=== PATIENT | male | born 1995 | race Hispanic/Latino ===

== ENCOUNTER → 2018-09-22 | Outpatient (REF) | payer OTHER ==
[2018-09-22 12:58] LABS: BLOOD UREA NITROGEN 13 MG/DL (7-18); CALCIUM LEVEL 8.8 MG/DL (8.5-10.1); CARBON DIOXIDE LEVEL 28 MEQ/L (21-32); CHLORIDE LEVEL 107 MEQ/L (98-107); CREATININE FOR GFR 0.78 MG/DL (0.70-1.30); GLOMERULAR FILTRATION RATE > 60.0 (>60); GLUCOSE, FASTING 100 MG/DL (70-100); POTASSIUM SERUM 3.8 MEQ/L (3.5-5.1); SODIUM LEVEL 142 MEQ/L (136-145)
[2018-09-22 13:03] LABS: CORTISOL AM 0.7 UG/DL (4.3-22.4)
[2018-09-22 13:39] LABS: OSMOLALITY SERUM 300 MOSM/KG (275-295)
== END ==
LOC: M LABDRAW1 11:48
PROVIDERS: ATTEND Internal Medicine Endocrinology, Diabetes & Metabolism
DX: D49.7 Neoplasm of unspecified behavior of endocrine glands and other parts of nervous system (principal)

== ENCOUNTER 2019-01-03 09:28 | Emergency (ER) | payer OTHER ==
[~2019-01-03] VITALS: Ht 162.6 cm; Wt 97.7 kg
[2019-01-03] MEDS ORDERED: SYNT125T PO (10:07)
[2019-01-03] MEDS ORDERED: DESM0.1T2 PO (10:07)
[2019-01-03] MEDS ORDERED: AMOX875T2 PO (10:07)
[2019-01-03] MEDS ORDERED: NS 1,000 ML IV ONE (10:15)
[2019-01-03] MEDS ORDERED: ONDANSETRON 4MG/2ML VIAL (J2405) IV ONE (10:15)
[2019-01-03] MEDS ORDERED: PHENYLEPHRINE 0.5% NASAL SPRAY 15 ML ONE (10:15)
[2019-01-03 10:47] LABS: HEMATOCRIT 33.5 % (42.0-52.0); MEAN CORPUSCULAR HEMOGLOBIN 30.9 pg (27.0-33.0); MEAN CORPUSCULAR HGB CONC 32.8 g/dl (32.0-36.5); MEAN CORPUSCULAR VOLUME 94.1 fl (80.0-96.0); PLATELET COUNT, AUTOMATED 353 10^3/uL (150-450); RED BLOOD COUNT 3.56 10^6/uL (4.30-6.10); WHITE BLOOD COUNT 12.1 10^3/uL (4.0-10.0)
[2019-01-03 11:01] LABS: INR 0.98; PROTHROMBIN TIME 13.1 SECONDS (12.1-14.4)
[2019-01-03 13:47] LABS: HEMATOCRIT 29.8 % (42.0-52.0); HEMOGLOBIN 9.8 g/dl (13.5-17.5); MEAN CORPUSCULAR HEMOGLOBIN 30.2 pg (27.0-33.0); MEAN CORPUSCULAR HGB CONC 32.9 g/dl (32.0-36.5); MEAN CORPUSCULAR VOLUME 91.7 fl (80.0-96.0); PLATELET COUNT, AUTOMATED 349 10^3/uL (150-450); RED BLOOD COUNT 3.25 10^6/uL (4.30-6.10); WHITE BLOOD COUNT 14.5 10^3/uL (4.0-10.0)
[2019-01-03 14:17] LABS: BLOOD UREA NITROGEN 26 MG/DL (7-18); CALCIUM LEVEL 8.4 MG/DL (8.5-10.1); CARBON DIOXIDE LEVEL 27 MEQ/L (21-32); CHLORIDE LEVEL 110 MEQ/L (98-107); CREATININE FOR GFR 0.85 MG/DL (0.70-1.30); GLOMERULAR FILTRATION RATE > 60.0 (>60); GLUCOSE, FASTING 95 MG/DL (70-100); POTASSIUM SERUM 4.5 MEQ/L (3.5-5.1); SODIUM LEVEL 143 MEQ/L (136-145)
[2019-01-03 16:36] VITALS: BP 99/56
== END 2019-01-03 16:42 | disposition short-term general hospital (02) ==
LOC: EDBD 09:28 → M ED 09:28
DX: R04.0 Epistaxis (principal); Z98.890 Other specified postprocedural states; Z79.899 Other long term (current) drug therapy; Z86.39 Personal history of other endocrine, nutritional and metabolic disease
CPT/HCPCS: 80048; 85027; 85610; 96374; 99284; J2405

== ENCOUNTER 2019-01-07 00:55 | Emergency (ER) | payer OTHER ==
[~2019-01-07] VITALS: Ht 160 cm; Wt 95.0 kg
[~2019-01-07 00:55] MED LIST: AMOX875T2 PO; DESM0.1T2 PO; SYNT125T PO
[2019-01-07 02:37] LABS: BASO % 0.2 % (0.0-1.0); EOS # 0.3 10^3/uL (0.0-0.50); EOS % 2.8 % (0.0-3.0); HEMATOCRIT 24.4 % (42.0-52.0); HEMOGLOBIN 7.8 g/dl (13.5-17.5); LYMPH # 2.5 10^3/uL (1.5-6.5); LYMPH % 23.6 % (24.0-44.0); MEAN CORPUSCULAR HEMOGLOBIN 30.8 pg (27.0-33.0); MEAN CORPUSCULAR VOLUME 96.4 fl (80.0-96.0); MONO # 0.5 10^3/uL (0.0-0.8); MONO % 4.7 % (0.0-5.0); NEUTROPHILS % 67.4 % (36.0-66.0); PLATELET COUNT, AUTOMATED 264 10^3/uL (150-450); RED BLOOD COUNT 2.53 10^6/uL (4.30-6.10); WHITE BLOOD COUNT 10.4 10^3/uL (4.0-10.0)
--- NOTE | 2019-01-07 02:51 | REPVR ---
EXAM: CT Head Without Contrast EXAM DATE/TIME: 01/07/2019 2:11 AM CLINICAL HISTORY: 23 years old, male; Injury or trauma; Injury history: Sugery on pitutary tumor; Initial encounter; Concussion / head injury; Consciousness not specified; Prior surgery; Surgery date: 3-7 days post-operative TECHNIQUE: Imaging protocol: Axial computed tomography images of the head without contrast. Radiation optimization: All CT scans at this facility use at least one of these dose optimization techniques: automated exposure control; mA and/or kV adjustment per patient size (includes targeted exams where dose is matched to clinical indication); or iterative reconstruction. COMPARISON: No relevant prior studies available. FINDINGS: Brain: Focal round hyper dense lesions measuring 2.2 x 2.1 cm in the pituitary fossa and suprasellar cistern. No CT evidence of acute cortical infarct. Midline shift: No midline shift. Ventricles: Ventricles, cisterns, and sulci are normal in size for age. Bones/joints: No calvarial fracture or destructive process. Sinuses: Diffuse paranasal sinus opacification, and fat within the sphenoid sinus consistent with transsphenoidal surgery. Mastoid air cells: Mastoid air cells are normally aerated. Orbits: Imaged orbits are unremarkable. Soft tissues: No focal extracranial soft tissue swelling. IMPRESSION: 2.2 x 2.1 cm suprasellar hyperdense mass, in a patient with recent transsphenoidal surgery. 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 It is well-defined and the morphology is not suggestive of hemorrhage although correlation with preoperative imaging is recommended Electronically signed by: Keo Nova On 01/07/2019 02:51:07 AM
[2019-01-07 02:57] LABS: BLOOD UREA NITROGEN 17 MG/DL (7-18); CARBON DIOXIDE LEVEL 29 MEQ/L (21-32); CHLORIDE LEVEL 105 MEQ/L (98-107); CREATININE FOR GFR 1.11 MG/DL (0.70-1.30); GLOMERULAR FILTRATION RATE > 60.0 (>60); GLUCOSE, FASTING 99 MG/DL (70-100); POTASSIUM SERUM 3.7 MEQ/L (3.5-5.1); SODIUM LEVEL 141 MEQ/L (136-145)
[2019-01-07 03:27] VITALS: BP 101/58
== END 2019-01-07 03:29 | disposition home or self-care (01) ==
LOC: M ED 00:55
DX: J95.831 Postprocedural hemorrhage of a respiratory system organ or structure following other procedure (principal); J34.89 Other specified disorders of nose and nasal sinuses; R93.0 Abnormal findings on diagnostic imaging of skull and head, not elsewhere classified; Z79.899 Other long term (current) drug therapy; Z79.2 Long term (current) use of antibiotics

== ENCOUNTER 2019-01-09 23:43 | Observation (INO) | payer OTHER ==
[2019-01-10] VITALS (8 sets, daily range): BP systolic 92–147; BP diastolic 52–67
[2019-01-10] MEDS ORDERED: ZOFR4TAB16 PO (00:08)
[2019-01-10] MEDS ORDERED: HYDR-4513 PO ×3 (00:08→03:50)
[2019-01-10] MEDS ORDERED: FLUT50SP33 (00:08)
[2019-01-10 03:10] LABS: HEMATOCRIT 20.5 % (42.0-52.0); MEAN CORPUSCULAR HEMOGLOBIN 32.1 pg (27.0-33.0); MEAN CORPUSCULAR HGB CONC 32.7 g/dl (32.0-36.5); MEAN CORPUSCULAR VOLUME 98.1 fl (80.0-96.0); PLATELET COUNT, AUTOMATED 296 10^3/uL (150-450); RED BLOOD COUNT 2.09 10^6/uL (4.30-6.10); WHITE BLOOD COUNT 9.6 10^3/uL (4.0-10.0)
[2019-01-10 03:18] LABS: HEMOGLOBIN 6.7 g/dl (13.5-17.5)
[2019-01-10] MEDS ORDERED: FLUTISP (03:50)
[2019-01-10] MEDS ORDERED: ONDA4TAB6 PO (03:50)
[2019-01-10] MEDS ORDERED: SYNT150T PO (03:50)
[2019-01-10 04:10] LABS: INR 1.04; PROTHROMBIN TIME 13.7 SECONDS (12.1-14.4)
[2019-01-10 04:11] LABS: PARTIAL THROMBOPLASTIN TIME 27.6 SECONDS (25.4-37.6)
[2019-01-10 04:14] LABS: BLOOD UREA NITROGEN 17 MG/DL (7-18); CALCIUM LEVEL 7.7 MG/DL (8.5-10.1); CARBON DIOXIDE LEVEL 28 MEQ/L (21-32); CHLORIDE LEVEL 110 MEQ/L (98-107); CREATININE FOR GFR 1.03 MG/DL (0.70-1.30); GLOMERULAR FILTRATION RATE > 60.0 (>60); GLUCOSE, FASTING 126 MG/DL (70-100); SODIUM LEVEL 144 MEQ/L (136-145)
[2019-01-10 08:03] LABS: HEMATOCRIT 25.3 % (42.0-52.0); HEMOGLOBIN 8.1 g/dl (13.5-17.5)
[2019-01-10] MEDS ORDERED: NS 1,000 ML IV SCH (08:05)
[2019-01-10] MEDS ORDERED: DESMOPRESSIN ACETATE 0.1 MG TAB PO SCH (09:00)
[2019-01-10] MEDS ORDERED: HYDROCORTISONE 10 MG TAB PO SCH ×2 (09:00→21:00)
[2019-01-10] MEDS ORDERED: ONDANSETRON 4 MG ORAL DISINTEGRATING TAB (Q0162 PER 1MG) PO PRN (09:15)
[2019-01-10] MEDS ORDERED: EPINEPHrine 1MG/ML INJ 30ML MD-VIAL As Ordered ONE (11:17)
[2019-01-10] MEDS ORDERED: NS 1,000 ML IV ONE (11:30)
[2019-01-10 12:08] LABS: ABG BASE EXCESS -6.4 (-2.0-2.0); ABG HCO3 18.7 MEQ/L (22.0-26.0); ABG O2 SATURATION 99.8 % (95.0-99.0); ABG PARTIAL PRESSURE CO2 35.4 mmHg (35.0-45.0); ABG PARTIAL PRESSURE O2 322.9 mmHg (75.0-100.0); ABG STANDARD HCO3 19.1 MEQ/L (22.0-26.0); ABG TOTAL CO2 19.8 MEQ/L (22.0-29.0); ABG pH (ARTERIAL) 7.341 UNITS (7.350-7.450)
--- NOTE | 2019-01-10 12:26 | REP ---
CHEST, SINGLE VIEW: There is no evidence of acute infiltrate. No pleural effusion is seen. The heart is normal in size. The mediastinal silhouette is unremarkable. The visualized osseous structures are intact. IMPRESSION: No acute pulmonary disease. Electronically Signed by Tunde Velazquez MD 01/10/2019 07:35 P
--- NOTE | 2019-01-10 18:06 | HPEPDOC ---
General Date of Admission Jan 10, 2019 at 09:07 Date of Service: Jan 10, 2019 Chief Complaint The patient is a 23-year-old male admitted with a reason for visit of Post Surgical Epistaxis. History of Present Illness 23-year-old male with past medical history of a pituitary tumor which the patient states was found incidentally after his thyroid function tests were noted to be abnormal, s/p transsphenoidal resection on December 20, 2018 at [facility] by Dr. Patino of ENT. Subsequently the patient states that he developed a nosebleed on January 03, 2019 after he gagged while brushing his teeth and coughed up blood. At that time, the patient states that he came here to the ER at [facility] and was discharged home after the bleeding stopped and his Hgb was stable (9.8-11.0). The patient stated that he once again developed nosebleeding on the evening of January 06 and once again was evaluated here in the ER and his hemoglobin was noted to be significantly lower at 7.8. At that time, the patient was transferred to [facility] for further evaluation. There the patient tells me that he was observed for 24 hours and discharged home without any intervention or any blood transfusions. Unfortunately, the patient returns to the [facility] ER once again today with complaints of continued bleeding from the nose. His hemoglobin was noted to be 6.7, and he was transfused 1 unit of packed red blood cells in the ER. The patient's bleeding stopped as soon as he came to the ER here, and his hemoglobin responded appropriately to the initial blood transfusion. At this time, the patient denied any acute complaints of lightheadedness, dizziness, headaches, visual changes, shortness of breath, chest pain, palpitations, abdominal pain, or any nausea/vomiting/diarrhea. The hospitalist team was consulted for admission. While in the ER, I did consult with Dr. Carcamo of ENT, and he recommended transfering the patient back to [facility] for a higher level of care, and for continuity with his initial surgeon Dr. Patino. Unfortunately, there was no bed available at the time for transfer according to the transfer center charge nurse at [facility]. I did discuss transferring the patient to a different facility with Mr. Sinha, however he adamantly refused going to another facility, and stated that he would rather stay at [facility]. Risks, benefits, and alternative options were discussed at length with the patient, and he verbalized understanding of the same. He stated that he rather stay here and wait for a bed at [facility] if/when it became available than be transferred. The patient was admitted to the hospitalist service for further evaluation and management. Home Medications Scheduled Desmopressin Acetate (Desmopressin Acetate) 0.1 Mg Tablet, 0.1 MG PO BID, (Reported) Hydrocortisone (Hydrocortisone) 10 Mg Tablet, 20 MG PO DAILY, (Reported) Hydrocortisone (Hydrocortisone) 10 Mg Tablet, 10 MG PO QHS, (Reported) Levothyroxine Sodium (Synthroid) 150 Mcg Tablet, 150 MCG PO QHS, (Reported) Scheduled PRN Fluticasone Propionate (Fluticasone Propionate) 16 Gm [place].susp, 1 SPRAY NA BID PRN for NASAL CONGESTION, (Reported) Ondansetron (Ondansetron Odt) 4 Mg Tab.rapdis, 4 MG PO Q8H PRN for NAUSEA, (Reported) Allergies Coded Allergies: No Known Allergies (Unverified , 01/07/19) Past Medical History Medical History As noted above Surgical History Transsphenoidal Resection of Pituitary Tumor on 12/20/18 Social History * Smoker: former Smoker Alcohol: occationally Drugs: denies In the Review of Systems Other systems 10 point review of systems negative unless otherwise specified in HPI. Physical Examination General Exam: Positive: Alert, Cooperative, No Acute Distress ENT Exam: Positive: Other ENT (Right Nare dripping blood) Chest Exam: Positive: Clear to auscultation, Normal air movement Heart Exam: Positive: Tachycardic, Normal S1, Normal S2 Telemetry: Positive: Sinus Abdomen Exam: Positive: Soft; Negative: Tenderness Extremity Exam: Negative: Tenderness, Swelling Neuro Exam: Positive: Normal Speech, Strength at 5/5 X4 ext, Normal Tone, Sensation Intact Psych Exam: Positive: Mental status NL, Mood NL, Oriented x 3 Vital Signs Vital Signs Date Time Temp Pulse Resp B/P (MAP) Pulse Ox O2 Delivery O2 Flow Rate FiO2 01/10/19 12:20 98.3 138 110/65 (80) 100 35 01/10/19 11:55 16 01/10/19 10:26 Room Air Laboratory Data Labs 24H Laboratory Tests 2 01/10/19 02:53: Nucleated Red Blood Cells % (auto) 4.0H, Prothrombin Time 13.7, Prothromb Time International Ratio 1.04, Activated Partial Thromboplast Time 27.6, Anion Gap 6L, Glomerular Filtration Rate > 60.0, Blood Urea Nitrogen 17, Creatinine 1.03, Sodium Level 144, Potassium Level 4.0, Chloride Level 110H, Carbon Dioxide Level 28, Calcium Level 7.7L 01/10/19 11:38: Blood Gas Bicarbonate Standard 19.1L, Arterial Blood pH 7.341L, Arterial Blood Partial Pressure CO2 35.4, Arterial Blood Partial Pressure O2 322.9H, Arterial Blood Total CO2 19.8L, Arterial Blood HCO3 18.7L, Arterial Blood Base Excess - 6.4L, Arterial Blood Oxygen Saturation 99.8H CBC/BMP Laboratory Tests 01/10/19 02:53 Red Blood Count 2.09 L, Mean Corpuscular Volume 98.1 H, Mean Corpuscular Hemoglobin 32.1, Mean Corpuscular Hemoglobin Concent 32.7, Red Cell Distribution Width 15.9 H, Calcium Level 7.7 L 01/10/19 07:53 Plan / VTE VTE Prophylaxis Ordered?: Yes Plan Plan During hospitalization, the patient once again started to bleed from the nose, and pressure was being held. 3 additional units of packed red blood cells were ordered, and the patient was transferred to the ICU for closer monitoring. Dr. Carcamo of ENT did come to the ICU and perform a bedside laryngoscopy and packed the right nostril to control the bleeding. At this time, I called [facility] and gave them an update on the patient's status. They informed me that they did have a Medical ICU Bed opening and would be accepting the patient for transfer. I spoke to Dr. Patino of ENT and discussed the aforementioned events, and I also provided him with Dr. Carcamo's cellphone number to further discuss his findings during the laryngoscope. I updated the patient's sister, Darlene at the bedside during the above events as well. At this time, the patient is responding appropriately, and is hemodynamically stable. We have ordered emergency services personnel to fly him to [place] for further intervention. EBONY ROCK MD Jan 10, 2019 18:06
--- NOTE | 2019-01-10 18:09 | DS.PDOC ---
Discharge Summary General Date of Admission Jan 10, 2019 at 09:07 Date of Discharge 01/10/2019 Specialist/Consultants Involve Dr. Carcamo of ENT, and Dr. Patino of ENT Discharge Summary PROCEDURES PERFORMED DURING STAY: Laryngoscopy by Dr. Carcamo of ENT ADMITTING/DISCHARGE DIAGNOSES: Recurrent epistaxis the patient with a history of recent transsphenoidal pituitary tumor resection COMPLICATIONS/CHIEF COMPLAINT: Post Surgical Epistaxis. HISTORY OF PRESENT ILLNESS: . 23-year-old male with past medical history of a pituitary tumor which the patient states was found incidentally after his thyroid function tests were noted to be abnormal, s/p transsphenoidal resection on December 20, 2018 at [facility] by Dr. Patino of ENT. Subsequently the patient states that he developed a nosebleed on January 03, 2019 after he gagged while brushing his teeth and coughed up blood. At that time, the patient states that he came here to the ER at [facility] and was discharged home after the bleeding stopped and his Hgb was stable (9.8-11.0). The patient stated that he once again developed nosebleeding on the evening of January 06 and once again was evaluated here in the ER and his hemoglobin was noted to be significantly lower at 7.8. At that time, the patient was transferred to [facility] for further evaluation. There the patient tells me that he was observed for 24 hours and discharged home without any intervention or any blood transfusions. Unfortunately, the patient returns to the [facility] ER once again today with complaints of continued bleeding from the nose. His hemoglobin was noted to be 6.7, and he was transfused 1 unit of packed red blood cells in the ER. The patient's bleeding stopped as soon as he came to the ER here, and his hemoglobin responded appropriately to the initial blood transfusion. At this time, the patient denied any acute complaints of lightheadedness, dizziness, headaches, visual changes, shortness of breath, chest pain, palpitations, abdominal pain, or any nausea/vomiting/diarrhea. The hospitalist team was consulted for admission. While in the ER, I did consult with Dr. Carcamo of ENT, and he recommended transfering the patient back to [facility] for a higher level of care, and for continuity with his initial surgeon Dr. Patino. Unfortunately, there was no bed available at the time for transfer according to the transfer center charge nurse at [facility]. I did discuss transferring the patient to a different facility with Mr. Sinha, however he adamantly refused going to another facility, and stated that he would rather stay at [facility]. Risks, benefits, and alternative options were discussed at length with the patient, and he verbalized understanding of the same. He stated that he rather stay here and wait for a bed at [facility] if/when it became available than be transferred. The patient was admitted to the hospitalist service for further evaluation and management. During hospitalization, the patient once again started to bleed from the nose, and pressure was being held. 3 additional units of packed red blood cells were ordered, and the patient was transferred to the ICU for closer monitoring. Dr. Carcamo of ENT did come to the ICU and perform a bedside laryngoscopy and packed the right nostril to control the bleeding. At this time, I called [facility] and gave them an update on the patient's status. They informed me that they did have a Medical ICU Bed opening and would be accepting the patient for transfer. I spoke to Dr. Patino of ENT and discussed the aforementioned events, and I also provided him with Dr. Carcamo's cellphone number to further discuss his findings during the laryngoscope. I updated the patient's sister, Darlene at the bedside during the above events as well. At this time, the patient is responding appropriately, and is hemodynamically stable. We have ordered emergency services personnel to fly him to [place] for further intervention. DISCHARGE MEDICATIONS: Please see below. ALLERGIES: Please see below. PHYSICAL EXAMINATION ON DISCHARGE: VITAL SIGNS: Please see below. General Exam: Positive: Alert, Cooperative, No Acute Distress ENT Exam: Positive: Other ENT (Right Nare dripping blood) Chest Exam: Positive: Clear to auscultation, Normal air movement Heart Exam: Positive: Tachycardic, Normal S1, Normal S2 Telemetry: Positive: Sinus Abdomen Exam: Positive: Soft; Negative: Tenderness Extremity Exam: Negative: Tenderness, Swelling Neuro Exam: Positive: Normal Speech, Strength at 5/5 X4 ext, Normal Tone, Sensation Intact Psych Exam: Positive: Mental status NL, Mood NL, Oriented x 3 LABORATORY DATA: Please see below. PROGNOSIS: Fair ACTIVITY: As tolerated. DIET: Nothing by mouth DISCHARGE PLAN: DISPOSITION: 02 Xfer To Acute Hosp. DISCHARGE INSTRUCTIONS: F/U with Dr. Patino of ENT at [facility] MICU. DISCHARGE CONDITION: Guarded TIME SPENT ON DISCHARGE: Greater than 30 minutes. Vital Signs/I&Os Vital Signs Date Time Temp Pulse Resp B/P (MAP) Pulse Ox O2 Delivery O2 Flow Rate FiO2 01/10/19 12:20 98.3 138 110/65 (80) 100 35 01/10/19 11:55 16 01/10/19 10:26 Room Air Laboratory Data Labs 24H Laboratory Tests 2 01/10/19 02:53: Nucleated Red Blood Cells % (auto) 4.0H, Prothrombin Time 13.7, Prothromb Time International Ratio 1.04, Activated Partial Thromboplast Time 27.6, Anion Gap 6L, Glomerular Filtration Rate > 60.0, Blood Urea Nitrogen 17, Creatinine 1.03, Sodium Level 144, Potassium Level 4.0, Chloride Level 110H, Carbon Dioxide Level 28, Calcium Level 7.7L 01/10/19 11:38: Blood Gas Bicarbonate Standard 19.1L, Arterial Blood pH 7.341L, Arterial Blood Partial Pressure CO2 35.4, Arterial Blood Partial Pressure O2 322.9H, Arterial Blood Total CO2 19.8L, Arterial Blood HCO3 18.7L, Arterial Blood Base Excess - 6.4L, Arterial Blood Oxygen Saturation 99.8H CBC/BMP Laboratory Tests 01/10/19 02:53 Red Blood Count 2.09 L, Mean Corpuscular Volume 98.1 H, Mean Corpuscular Hemoglobin 32.1, Mean Corpuscular Hemoglobin Concent 32.7, Red Cell Distribution Width 15.9 H, Calcium Level 7.7 L 01/10/19 07:53 Discharge Medications Scheduled Desmopressin Acetate (Desmopressin Acetate) 0.1 Mg Tablet, 0.1 MG PO BID, (Reported) Hydrocortisone (Hydrocortisone) 10 Mg Tablet, 20 MG PO DAILY, (Reported) Hydrocortisone (Hydrocortisone) 10 Mg Tablet, 10 MG PO QHS, (Reported) Levothyroxine Sodium (Synthroid) 150 Mcg Tablet, 150 MCG PO QHS, (Reported) Scheduled PRN Fluticasone Propionate (Fluticasone Propionate) 16 Gm [place].susp, 1 SPRAY NA BID PRN for NASAL CONGESTION, (Reported) Ondansetron (Ondansetron Odt) 4 Mg Tab.rapdis, 4 MG PO Q8H PRN for NAUSEA, (Reported) Allergies Coded Allergies: No Known Allergies (Unverified , 01/07/19) EBONY ROCK MD Jan 10, 2019 18:09
[2019-01-10] MEDS ORDERED: LEVOTHYROXINE 150MCG TABLET (0.15MG) PO SCH (21:00)
--- NOTE | 2019-01-11 09:50 | HPE ---
DATE OF ADMISSION: 01/10/2019 Carl Sinha is a 23-year-old gentleman who has a history of epistaxis. It started on 01/03/2019. The patient had a pituitary adenoma resected 2 weeks ago. He developed bleeding on 01/03/2019, which has been intermittent since then. His hemoglobin dropped from 11 to 9 on 01/03/2019. He was discharged home and then readmitted to the emergency department on 01/07/2019 with more problems with bleeding. This time, his hemoglobin had dropped to 7.8. The patient was stabilized and transferred to [place]. The patient was observed overnight and then discharged. The patient had further problems with bleeding thereafter. The patient presents with a history of bleeding, which started late yesterday. His hemoglobin was 6 this morning. The patient was seen in the emergency department. There is no bleeding at the time. The patient was stable and so was advised the patient should receive some transfusion of blood. The patient had 1 unit of packed cells, and it was recommended the patient be transferred back to [place] at this time. The patient started to bleed again and so was seen by me in the intensive care unit. At that time, he was not bleeding. He had been bleeding mainly from the right side of his nose. He has had a drop in his blood pressure. Examination at that time showed that he was at a decreased level of consciousness. He did respond when I talked to him. Because of the history, I elected to pack his nose. I put in [place] Vaseline gauze on the right side, two packages of 6 feet. Thereafter, he had no bleeding. I did contact the surgeon from [place], and arrangements had been made for transfer.
== END 2019-01-10 12:40 | disposition short-term general hospital (02) ==
LOC: M ED 23:43 → M ED INP 01-10 09:07 → M PED 01-10 10:40 → M ICU 01-10 11:13
PROVIDERS: ADMIT Internal Medicine; ATTEND Internal Medicine
DX: R04.0 Epistaxis (principal); Z98.890 Other specified postprocedural states; D62 Acute posthemorrhagic anemia; R41.82 Altered mental status, unspecified; E03.9 Hypothyroidism, unspecified; Z79.899 Other long term (current) drug therapy; Z87.891 Personal history of nicotine dependence; Z86.39 Personal history of other endocrine, nutritional and metabolic disease
CPT/HCPCS: 30903; 36430; 36600; 71045; 80048; 82803; 85014; 85018; 85027; 85610; 85730; 86850; 86900; 86901; 86920; 96360; 96361; 99285; P9016

== ENCOUNTER 2019-01-30 23:17 | Emergency (ER) | payer OTHER ==
[~2019-01-30] VITALS: Ht 177.8 cm; Wt 100.0 kg
[~2019-01-30 23:17] MED LIST changes: +FLUT50SP33; +FLUTISP; +HYDR-4513 PO; +ONDA4TAB6 PO; +SYNT150T PO; +ZOFR4TAB16 PO
[2019-01-30] MEDS ORDERED: NS 1,000 ML IV ONE (23:30)
[2019-01-30 23:44] LABS: BASO % 0.6 % (0.0-1.0); EOS # 0.3 10^3/uL (0.0-0.50); EOS % 5.4 % (0.0-3.0); HEMATOCRIT 35.4 % (42.0-52.0); HEMOGLOBIN 11.5 g/dl (13.5-17.5); LYMPH # 1.7 10^3/uL (1.5-6.5); LYMPH % 32.9 % (24.0-44.0); MEAN CORPUSCULAR HEMOGLOBIN 30.3 pg (27.0-33.0); MEAN CORPUSCULAR HGB CONC 32.5 g/dl (32.0-36.5); MEAN CORPUSCULAR VOLUME 93.2 fl (80.0-96.0); MONO # 0.3 10^3/uL (0.0-0.8); MONO % 5.6 % (0.0-5.0); NEUTROPHILS # 2.8 10^3/uL (1.8-7.7); NEUTROPHILS % 54.9 % (36.0-66.0); PLATELET COUNT, AUTOMATED 237 10^3/uL (150-450); WHITE BLOOD COUNT 5.1 10^3/uL (4.0-10.0)
[2019-01-30 23:45] VITALS: BP 110/66
[2019-01-30 23:54] LABS: INR 0.99; PROTHROMBIN TIME 12.8 SECONDS (11.8-14.0)
[2019-01-30 23:55] LABS: PARTIAL THROMBOPLASTIN TIME 28.6 SECONDS (25.0-38.4)
[2019-01-31] MEDS ORDERED: ONDANSETRON 4MG/2ML VIAL (J2405) IV ONE
[2019-01-31 00:03] LABS: BLOOD UREA NITROGEN 11 MG/DL (7-18); CALCIUM LEVEL 8.2 MG/DL (8.5-10.1); CARBON DIOXIDE LEVEL 28 MEQ/L (21-32); CHLORIDE LEVEL 106 MEQ/L (98-107); CREATININE FOR GFR 1.12 MG/DL (0.70-1.30); GLOMERULAR FILTRATION RATE > 60.0 (>60); GLUCOSE, FASTING 121 MG/DL (70-100); POTASSIUM SERUM 3.8 MEQ/L (3.5-5.1); SODIUM LEVEL 143 MEQ/L (136-145)
[2019-01-31] MEDS ORDERED: HYDROCORTISONE 100 MG/2 ML VIAL (J1720 PER 1) IV ONE (00:15)
[2019-01-31] MEDS ORDERED: PROMETHAZINE INJ 25 MG/ML VIAL (J2550) IV ONE (00:15)
== END 2019-01-31 00:40 | disposition short-term general hospital (02) ==
LOC: M ED 23:17
DX: R04.0 Epistaxis (principal); D50.0 Iron deficiency anemia secondary to blood loss (chronic); E11.9 Type 2 diabetes mellitus without complications; E27.40 Unspecified adrenocortical insufficiency; F17.210 Nicotine dependence, cigarettes, uncomplicated; Z79.899 Other long term (current) drug therapy
CPT/HCPCS: 36430; 80047; 80048; 85025; 85610; 85730; 86850; 86900; 86901; 86920; 96374; 96375; 99285; J1720; J2405; P9016